=== PATIENT | male | born 1970 | race Caucasian/White ===

== ENCOUNTER 2025-01-26 15:58 | Outpatient (AMB) | payer OTHER, SELFPAY ==
[2025-01-26 16:06] VITALS: PULSE 68; O2SAT 98; BMI 26.8
--- NOTE | 2025-01-26 16:06 | MHC.OFFVIS ---
Vital Signs 01/26/25 16:06 Height 5 ft 10 in Weight 187 lb BMI 26.8 Pulse 68 Pulse Source Pulse Oximeter Pulse Oximetry (%) 98 Oxygen Delivery Method Room Air Intake Visit Reasons: MAT Intake Allergies No Known Allergies Allergy (Verified 01/26/25 16:08) Medication List - Last Reconciled 01/26/25 by Adrianna Hampton NP-C buprenorphine-naloxone 8-2 mg (Suboxone) 1 film sublingual DAILY clonidine HCl 0.1 mg PO TID PRN hydroxyzine pamoate (Vistaril) 25 mg PO TID PRN HPI Comments Details: The patient is a 54-year-old male presenting with an ongoing history of opioid use disorder, motivated to restart buprenorphine/naloxone therapy. He reports a current usage of two bundles of heroin a day, which equates to 20 bags. The patient acknowledged previous experiences with buprenorphine-naloxone, recounting the need to be in a state of withdrawal before initiation to avoid precipitated withdrawal, a notably unpleasant experience described as the absolute worst feeling in the world and worse than being in full-on withdrawal. The patient expressed understanding that a waiting period of 12 to 16 hours is typically required after the last opioid use before starting Suboxone, extending up to 24 hours if fentanyl is involved due to its prolonged duration in the system. He plans to initiate the buprenorphine-naloxone in 24 hours, when he anticipates opioids will be fully out of his system. 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 He displayed a rational understanding of withdrawal symptoms alleviation measures, including clonidine 0.1 mg three times daily, as needed and hydroxyzine 25 mg 1-2 tablets up to three times daily,as needed for anxiety and withdrawal symptoms. The patient's history includes use of oxycodone, and he mentions prior withdrawal experiences, including a 30-day incarceration during which he unexpectedly did not experience severe withdrawal from oxycodone use, yet noted sleep disturbances. [facility] Medical History (Updated 01/26/25 @ 18:13 by LIVIER Galvan) Opioid use disorder, severe, dependence Review of Systems Const All systems reviewed & are unremarkable except as noted in HPI and below Psych Reports as per HPI Physical Exam Vital Signs: Last Vital Signs Pulse 68 01/26/25 16:06 Pulse Ox 98 01/26/25 16:06 Oxygen Delivery Method Room Air 01/26/25 16:06 BMI result Body Mass Index 26.8 Const General: cooperative Nutritional Appearance: average body habitus Orientation/consciousness: patient oriented x3 HEENT Head: Yes normal to inspection Ears: hearing grossly normal bilaterally General nose exam: Normal external nose present Face and sinus: Yes normal facial exam Mouth: Normal oral and palatal mucosa present Teeth and gingiva: poor dentition Eyes General: appearance normal, both eyes and all related structures Eyelids: Yes eyelids normal Conjunctivae: conjunctivae normal Sclerae: sclerae normal Corneas: corneas normal Neck Neck: Yes normal visual inspection Resp Effort & Inspection: normal respiratory effort Auscultation: diminished lung sounds (lower lobes ) Cardio Rate: regular rate Rhythm: regular rhythm GI Inspection: Yes normal to inspection Rectal Exam - Male: Yes deferred Skin General skin exam: no rashes or lesions noted Neuro General: patient oriented x3 and CN's II-XI intact bilaterally Gait exam (Neuro): Normal gait present Extrem General: Yes normal to inspection Psych Appearance: grossly normal Mental Status: mental status grossly normal Speech and movement: Normal speech and movement present Affect: normal affect Attitude: cooperative Thought process: Normal thought process present Insight: Good insight present (Psych) Judgement: Good judgement present (Psych) Results AMB 14 Panel Urine Drug Screen Urine Marijuana (THC) Negative Last Edit by Daly Kevin RN on 01/26/25 18:07 Urine Cocaine Positive Last Edit by Daly Kevin RN on 01/26/25 18:07 Urine Morphine Positive Last Edit by Daly Kevin RN on 01/26/25 18:07 Urine Methamphetamine Negative Last Edit by Daly Kevin RN on 01/26/25 18:07 Urine Amphetamine Negative Last Edit by Daly Kevin RN on 01/26/25 18:07 Urine Benzodiazepine Negative Last Edit by Daly Kevin RN on 01/26/25 18:07 Urine Barbiturates Negative Last Edit by Daly Kevin RN on 01/26/25 18:07 Urine Methadone Negative Last Edit by Daly Kevin RN on 01/26/25 18:07 Urine Buprenorphine Negative Last Edit by Daly Kevin RN on 01/26/25 18:07 Urine Tricyclic Antidepressant Negative Last Edit by Daly Kevin RN on 01/26/25 18:07 Urine MDMA Negative Last Edit by Daly Kevin RN on 01/26/25 18:07 Urine Oxycodone Negative Last Edit by Daly Kevin RN on 01/26/25 18:07 Urine Phencyclidine Negative Last Edit by Daly Kevin RN on 01/26/25 18:07 Urine Propoxyphene Negative Last Edit by Daly Kevin RN on 01/26/25 18:07 Assessment & Plan Assessment & Plan (1) Opioid dependence, uncomplicated: Code(s): F11.20 - Opioid dependence, uncomplicated Category: Medical Plan Buprenorphine-naloxone 8-2 mg, one strip, daily, cut strip into 2 mg, 4 pieces and take sublingual every 2-4 hours, treatment to start after a 12-16 hours or 24-hour (if fentanyl) opioid clearance to avoid precipitated withdrawal. Anticipate initial dosage adjustments, backed by withdrawal management medications clonidine and hydroxyzine, and evaluate when following up in 3 days. Education provided re: mental health services, client decline information at present time. Encouraged to initiate care with a primary care physician. Orders: Orders Liver Panel Today F11.20 - Opioid dependence, uncomplicated AMB 14 Panel Urine Drug Screen Today F11.20 - Opioid dependence, uncomplicated Basic Metabolic Panel Today F11.20 - Opioid dependence, uncomplicated Complete Blood Count Auto Diff Today F11.20 - Opioid dependence, uncomplicated Medications: New clonidine HCl 0.1 mg PO TID PRN 14 tabs 0RF withdrawal symptoms hydroxyzine pamoate (Vistaril) 25 mg PO TID PRN 21 caps 0RF itching buprenorphine-naloxone 8-2 mg (Suboxone) 1 film sublingual DAILY 4 ea 0RF Patient Instructions: - Wait 12-16 hours or at least 24 hours (if fentanyl) after last opioid use before starting buprenorphine-naloxone 8-2 mg. - Start with 2 mg Suboxone doses, cut from an 8 mg strip to 4 pieces. Increase gradually if needed. - Use clonidine and hydroxyzine as prescribed for withdrawal symptoms. - Follow up in 3 days for assessment. - Keep Narcan available for emergencies, Narcan supplied to patient during visit. - Call or come in if you feel excessively worse after starting buprenorphine-naloxone. - Reduce cigarette use. - Avoid alcohol and any other substances as discussed. - Buprenorphine initiation handout provided. The patient verbalized understanding and agreed with the plan of care. Scribe Plan - Not visible on output: Patient was informed and verbally consented to the use of an ambient scribe for clinical note documentation during this visit. Coding Level of Care Code New Pt Level 4 (82356) Diagnoses Opioid dependence, uncomplicated F11.20 Time Spent (min) 45 Comment Chart preparation and education. 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 Substance Abuse History Substance Abuse History (includes route, frequency and quantity): Heroin (current), Fentanyl, Buprenorphine/naloxone, Methadone, Oxycodone product, Cocaine, Benzodiazepines, Other opioids, Alcohol, Marijuana and Tobacco Age of first use: 12 Social History Domestic Violence concerns: no Children: 2 adult Do you have a support system?: yes Current mode of transportation?: company truck Where are you currently residing?: [place] LMP: NA Details: Carson reports living in [place] with his girlfriend of 26 years up until 4-5 years ago when they both moved here. 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 IV Drug Use Have you ever shared needles?: No Have you ever belonged to a needle exchange program?: No Do you buy needles at a pharmacy?: No Have you ever overdosed?: No Have you ever been hospitalized for an overdose?: No Was Naloxone administered?: No Recovery History Have you had any periods of recovery?: Yes What is your longest time in recovery?: 1 year When was the last time you were in recovery?: 4 years ago Have you ever had inpatient treatment for your substance abuse disorder?: No Have you been in an inpatient detoxification program?: Yes Have you been in an inpatient [place]hab/[place] house?: No Have you been in an outpatient Methadone Maintenance program?: Yes Have you been in an outpatient Suboxone Maintenance program?: Yes Have you been in an AA/NA support program?: Yes Have you had a Recovery Support Communications Equipment Installer?: No Have you had Peer Support?: No Details: Has attended AA in the past, peer recovery/support is not for him. Behavioral Health History Do you have a current provider? If so, who?: no diagnosis: none History of other addictive behavior: none History of inpatient psychiatric hospitalization? If so, how many? Most Recent? Where?: no History of self harming thoughts?: No History of homicidal or suicidal intentions?: No Medical Conditions Endocarditis?: No Skin Infection: No Seizure related to withdrawal or overdose: No Head or brain injury: No Hepatitis A (if yes, have you been treated?): No Hepatitis B (if yes, have you been treated?): No Hepatitis C (if yes, have you been treated?): No HIV (if yes, have you been treated?): No TB (if yes, have you been treated?): No Other: No Do you have any chronic pain conditions?: none Details: Carson reports having no major or minor medical concerns other than his SUSANA. He has never had a PCP however now feels that at 54 years old it may be the time to secure one. Legal History History of incarceration: Yes Currently on parole or probation: No Pending court cases: No DCF involvement: No
== END 2025-01-26 18:33 | disposition home or self-care (01) ==
LOC: HO.HCC 15:58
PROVIDERS: Visit Provider Clinical Nurse Specialist Psychiatric/Mental Health
DX: F11.20 Opioid dependence, uncomplicated (principal)
CPT/HCPCS: 99204

== ENCOUNTER → 2025-01-26 15:58 | Outpatient (BNVA) | payer OTHER, SELFPAY | PROVIDERS: Visit Provider Clinical Nurse Specialist Psychiatric/Mental Health | DX: F11.20 Opioid dependence, uncomplicated (principal); Z79.899 Other long term (current) drug therapy | CPT/HCPCS: 80307 ==

== ENCOUNTER 2025-01-29 11:47 | Outpatient (AMB) | payer OTHER, SELFPAY ==
--- NOTE | 2025-01-29 11:51 | A.OFFVIS_ITS ---
Intake Visit Reasons: MAT Allergies No Known Allergies Allergy (Verified 01/26/25 16:08) HPI Comments Details: The patient is a 54-year-old male who presents for a follow-up to assess starting buprenorphine-naloxone for opiate use disorder. Reports deciding to wait until Sunday to start buprenorphine-naloxone treatment due to concerns the withdrawal symptoms and or taken buprenorphine-naloxone while working was not the best idea. The patient was given clonidine and hydroxyzine to assist with minimizing withdrawal symptoms. Reports decreasing the use of heroin and took 1 bag yesterday. Looking forward to induction on Sunday. The patient has a his tory of using buprenorphine-naloxone and is familiar medication and protocol. [facility] Medical History Opioid use disorder, severe, dependence Review of Systems Const All systems reviewed & are unremarkable except as noted in HPI and below Physical Exam Const General: cooperative Psych Appearance: grossly normal Mental Status: mental status grossly normal Speech and movement: Normal speech and movement present Affect: Labile affect present Attitude: cooperative Thought process: Normal thought process present Insight: Good insight present (Psych) Judgement: Good judgement present (Psych) Assessment & Plan Assessment & Plan (1) Opioid dependence, uncomplicated: Code(s): F11.20 - Opioid dependence, uncomplicated Category: Medical Plan The patient will begin buprenorphine-naloxone 8-2 mg strip, cut strip into 4 pieces and administer one piece (2 mg) subliminally every 2-4 hours pending withdrawal symptoms and comfort level, at the conclusion of the workday tomorrow while waiting (12-16 hours since last use of opioid or 24 hours if fentanyl) and has a structured plan to address withdrawal symptoms using clonidine and hydroxyzine. We have arranged follow-up on Sunday for assessment and potential dose adjustment. His support network, including his partner and granddaughters, are pivotal to his recovery. Patient Instructions: - Begin buprenorphine-naloxone treatment tomorrow at the end of the workday. - buprenorphine-naloxone 8-2 mg strip, cut strip into 4 pieces and administer one piece (2 mg) subliminally every 2-4 hours pending withdrawal symptoms and comfort level - Use clonidine and hydroxyzine as prescribed for withdrawal symptoms. - Follow the specific dosing schedule provided and buprenorphine initiation handout. - Monitor symptoms before each buprenorphine-naloxone dose. - Attend the follow-up appointment on Sunday. - Maintain communication with your support system. - [facility] and or emergency department if severe withdrawal symptoms occur. Scribe Plan - Not visible on output: Patient was informed and verbally consented to the use of an ambient scribe for clinical note documentation during this visit. Coding Level of Care Code Est Pt Level 4 (66776) Diagnoses Opioid dependence, uncomplicated F11.20
== END 2025-01-29 12:08 | disposition home or self-care (01) ==
LOC: HO.HCC 11:48
PROVIDERS: Visit Provider Clinical Nurse Specialist Psychiatric/Mental Health
DX: F11.20 Opioid dependence, uncomplicated (principal)
CPT/HCPCS: 99214